=== PATIENT | male | born 1975 | race Caucasian/White ===

== ENCOUNTER 2016-04-25 19:30 | Emergency (ER) | payer OTHER | END 2016-04-25 21:58 | disposition home or self-care (01) | LOC: ER 19:30 | DX: S93.402A Sprain of unspecified ligament of left ankle, initial encounter (principal); F32.9 Major depressive disorder, single episode, unspecified; F17.200 Nicotine dependence, unspecified, uncomplicated; X58.XXXA Exposure to other specified factors, initial encounter | CPT/HCPCS: 73610-LT; 99284; A9270-GY ==